=== PATIENT | male | born 1995 | race Hispanic/Latino ===

== ENCOUNTER 2021-05-03 17:59 | Emergency (ER) | payer SELFPAY ==
[2021-05-03] MEDS ORDERED: Boostrix 0.5 ML (Tdap) VIAL ONE (19:29)
[2021-05-03] MEDS ORDERED: Lidocaine 2% PF 5 ML VIAL ONE (19:31)
== END 2021-05-03 20:49 | disposition home or self-care (01) ==
LOC: ERS 17:59
DX: S01.81XA Laceration without foreign body of other part of head, initial encounter (principal); F17.210 Nicotine dependence, cigarettes, uncomplicated; Z23 Encounter for immunization; X99.0XXA Assault by sharp glass, initial encounter
CPT/HCPCS: 12011; 90471; 90715; J2001